=== PATIENT | female | born 1985 | race African-American/Black ===

== ENCOUNTER 2017-02-20 19:41 | Emergency (ER) | payer MEDICAID ==
[~2017-02-20] VITALS: Ht 165.1 cm; Wt 70.4 kg
[~2017-02-20 19:41] MED LIST: TYLENOL
[2017-02-20 21:32] LABS: BASOPHILS % 0.7 % (0.0-2.0); EOSINOPHILS % 0.9 % (0.0-5.0); HEMATOCRIT. 34.7 % (36.0-48.0); HEMOGLOBIN. 11.6 g/dL (12.0-16.0); LYMPHOCYTES % 34.3 % (20.0-50.0); MEAN CORPUSCULAR HEMOGLOBIN 28.3 pg (28.0-32.0); MEAN CORPUSCULAR VOLUME 84.9 fL (81.0-99.0); MONOCYTES % 6.1 % (2.0-8.0); PLATELET 301 x1000/uL (130-400); RED BLOOD CELL COUNT 4.09 mill/uL (4.2-5.4); RED CELL DISTRIBUTION WIDTH 16.1 % (11.6-14.6)
[2017-02-20 21:36] LABS: CHLORIDE 104 mEq/L (98-107)
[2017-02-20] MEDS ORDERED: ACETAMINOPHEN 325MG TABLET PO ONE (21:45)
[2017-02-20 21:57] LABS: CARBON DIOXIDE 21 mEq/L (21-32)
[2017-02-20 21:59] LABS: B-HCG QUANTITATIVE 108242 mIU/mL (<3)
[2017-02-21 00:15] VITALS: BP 111/79
== END 2017-02-21 00:16 | disposition home or self-care (01) ==
LOC: ER 20:26
DX: O26.891 Other specified pregnancy related conditions, first trimester (principal); O99.331 Smoking (tobacco) complicating pregnancy, first trimester; R07.9 Chest pain, unspecified; F17.200 Nicotine dependence, unspecified, uncomplicated; Z3A.09 9 weeks gestation of pregnancy
CPT/HCPCS: 36415; 71045; 76801; 80053; 84702; 85025; 99285; Z7610

== ENCOUNTER 2017-09-13 15:53 | Inpatient (IN) | payer MEDICAID, OTHER ==
[~2017-09-13] VITALS: Ht 165.1 cm; Wt 73.5 kg
[2017-09-13] MEDS ORDERED: PNV1TABL50 PO (16:43)
[2017-09-13] MEDS: LACTATED RINGERS 1,000 ML IV SCH ×2 (18:36→20:18)
[2017-09-13] MEDS ORDERED: DEXT 5%/LR + PITOCIN 20UNITS/L 1,000 ML IV SCH ×2 (21:08→22:45)
[2017-09-13] MEDS ORDERED: BUTORPHANOL TARTRATE 2 MG/ML VIAL IV PRN (21:15)
[2017-09-13] MEDS ORDERED: LIDOCAINE HCL 1% 20ML VIAL (Pyxis) INJ INFIL SCH (21:15)
[2017-09-13] MEDS ORDERED: NALOXONE HCL 0.4 MG/ML 1ML VIAL IM PRN (21:15)
[2017-09-13 21:55] LABS: CLARITY URINE CLEAR (CLEAR); COLOR URINE YELLOW (YELLOW); KETONES URINE TRACE (NEGATIVE); LEUKOCYTE ESTERASE URINE 2+ (NEGATIVE); NITRITE URINE NEGATIVE (NEGATIVE); OCCULT BLOOD URINE NEGATIVE (NEGATIVE); PH URINE 6.5 (4.5-8.0); PROTEIN URINE NEGATIVE (NEGATIVE); SPECIFIC GRAVITY URINE 1.025 (1.005-1.030)
[2017-09-13 21:55] LABS: BASOPHILS % 0.6 % (0.0-2.0); EOSINOPHILS % 0.8 % (0.0-5.0); HEMATOCRIT. 34.4 % (36.0-48.0); HEMOGLOBIN. 11.4 g/dL (12.0-16.0); LYMPHOCYTES % 23.3 % (20.0-50.0); MEAN CORPUSCULAR HEMOGLOBIN 27.1 pg (28.0-32.0); MEAN CORPUSCULAR VOLUME 81.5 fL (81.0-99.0); MEAN PLATELET VOLUME 9.8 fl (7.4-10.4); MONOCYTES % 6.8 % (2.0-8.0); NEUTROPHILS % 68.5 % (40.0-76.0); PLATELET 313 x1000/uL (130-400); RED BLOOD CELL COUNT 4.22 mill/uL (4.2-5.4); RED CELL DISTRIBUTION WIDTH 15.2 % (11.6-14.6)
[2017-09-13] MEDS ORDERED: PENICILLIN G POTASSIUM 5 MMU in DEXT 5% WATER 100 ML IV SCH (22:00)
[2017-09-13 22:02] LABS: INR 0.9; PARTIAL THROMBOPLASTIN TIME 29.6 sec (23.4-31.0); PROTHROMBIN TIME 9.6 sec (9.4-11.6)
[2017-09-13 22:03] LABS: *AMPHETAMINES SCREEN URINE NEGATIVE (NEGATIVE); *BARBITURATES SCREEN URINE NEGATIVE (NEGATIVE); *BENZODIAZEPINES SCREEN URINE NEGATIVE (NEGATIVE)
[2017-09-13 22:04] LABS: *COCAINE SCREEN URINE NEGATIVE (NEGATIVE); CANNABINOID URINE SCREEN NEGATIVE (NEGATIVE); METHADONE URINE SCREEN NEGATIVE (NEGATIVE); OPIATES URINE SCREEN NEGATIVE (NEGATIVE); PHENCYCLIDINE URINE SCREEN NEGATIVE (NEGATIVE)
[2017-09-13 22:38] LABS: RUBELLA IGG 58.4 IU/mL (4.99-10)
[2017-09-13 22:39] LABS: HEPATITIS B SURFACE ANTIGEN NEGATIVE
[2017-09-13] MEDS ORDERED: LANOLIN OINT 0.25 GM TUBE TOP PRN (22:45)
[2017-09-13] MEDS ORDERED: IBUPROFEN 400MG TABLET PO PRN (22:45)
[2017-09-13] MEDS ORDERED: RHO(D) IMMUNE GLOBULIN 300 MCG/SYR IM PRN (22:45)
[2017-09-13] MEDS ORDERED: METHYLERGONOVINE MALEATE 0.2 MG/ML IM PRN (22:45)
[2017-09-14 01:15] VITALS: BP 118/69
[2017-09-14 01:45] VITALS: BP 143/76
[2017-09-14] MEDS ORDERED: PENICILLIN G POTASSIUM 2.5 MMU in DEXTROSE 5% WATER 50 ML IV SCH (02:00)
[2017-09-14] MEDS: IBUPROFEN 800MG TABLET PO PRN ×2 (02:34→23:24)
[2017-09-14] MEDS ORDERED: CITRIC ACID/SODIUM CITRATE SOLN 30ML UDC PO SCH (03:00)
[2017-09-14 07:16] LABS: BASOPHILS % 0.4 % (0.0-2.0); EOSINOPHILS % 0.2 % (0.0-5.0); HEMATOCRIT. 33.7 % (36.0-48.0); HEMOGLOBIN. 11.1 g/dL (12.0-16.0); LYMPHOCYTES % 18.1 % (20.0-50.0); MEAN CORPUSCULAR HEMOGLOBIN 26.8 pg (28.0-32.0); MEAN CORPUSCULAR VOLUME 81.7 fL (81.0-99.0); MEAN PLATELET VOLUME 8.8 fl (7.4-10.4); MONOCYTES % 6.2 % (2.0-8.0); NEUTROPHILS % 75.1 % (40.0-76.0); PLATELET 230 x1000/uL (130-400); RED BLOOD CELL COUNT 4.12 mill/uL (4.2-5.4); RED CELL DISTRIBUTION WIDTH 15.1 % (11.6-14.6)
[2017-09-14 09:00] VITALS: BP 110/67
[2017-09-14 18:00] VITALS: BP 122/88
[2017-09-15 00:01] VITALS: BP 105/59
[2017-09-15 07:59] VITALS: BP 104/70
[2017-09-15 11:49] VITALS: BP 104/70
[2017-09-15] MEDS: IBUPROFEN 800MG TABLET PO PRN (11:49)
== END 2017-09-15 14:55 | disposition home or self-care (01) | DRG 560 ==
LOC: L&D 15:53 → OBSVTOIN 15:53 → 7EST PP/OB 09-14 01:10
PROVIDERS: ADMIT Obstetrics & Gynecology; ATTEND Obstetrics & Gynecology
PROC: 10E0XZZ Delivery of Products of Conception, External Approach (ICD-10-PCS; principal; 2017-09-13 21:59)
DX: O80 Encounter for full-term uncomplicated delivery (principal); Z37.0 Single live birth; Z3A.37 37 weeks gestation of pregnancy
CPT/HCPCS: 36415; 76805; 76818; 80305; 81003; 85025; 85610; 85730; 86592; 86703; 86762; 86850; 86900; 87340; G0378; J0595; J2540; J2590; J7060; J7120